=== PATIENT | female | born 1995 | race African-American/Black ===

== ENCOUNTER 2018-11-07 10:52 | Emergency (ER) | payer MEDICAID ==
[~2018-11-07] VITALS: Ht 175.3 cm; Wt 61.4 kg
[2018-11-07 10:56] VITALS: Ht 175.3 cm; Wt 61.4 kg
[2018-11-07 11:39] LABS: BASOPHILS 0.6 % (0-2); EOSINOPHILS 1.6 % (0-7); HCG SERUM POSITIVE (NEGATIVE); HEMATOCRIT 40.5 % (36.0-48.0); HEMOGLOBIN 13.8 g/dL (12-16); IMMATURE GRANULOCYTES 0.1 % (0-5); LYMPHOCYTES 19.5 % (15-50); MCH 27.6 pg (26.0-34.0); MCHC 34.1 g/dL (31.0-37.0); MEAN PLATELET VOLUME 11.5 fL (7.4-10.4); MONOCYTES 7.1 % (2-11); NEUTROPHILS 71.1 % (40-80); PLATELET COUNT 268 10x3/uL (130-400); RDW 13.5 % (11.5-14.5); WBC 10.5 10x3/uL (4.8-10.8)
[2018-11-07 11:45] LABS: ALKALINE PHOSPHATASE 53 U/L (46-116); ALT (SGPT) 14 U/L (10-68); BILIRUBIN - TOTAL 0.98 mg/dL (0.2-1.3); CALC OSMOLALITY 272 mosm/kg (275-300); CALCIUM 9.1 mg/dL (8.5-10.1); CHLORIDE - SERUM 101 mmol/L (98-107); CREATININE - SERUM 0.8 mg/dL (0.6-1.3); GLUCOSE 92 mg/dL (74-106); POTASSIUM - SERUM 3.1 mmol/L (3.5-5.1); PROTEIN - SERUM 8.2 g/dL (6.4-8.2); SODIUM 137 mmol/L (136-145); UREA NITROGEN 10 mg/dL (7-18); eGFR NON AFRICAN AMERICAN > 90 mL/min (90-120)
[2018-11-07 11:48] LABS: APPEARANCE HAZY (CLEAR); BILIRUBIN NEGATIVE (NEGATIVE); COLOR YELLOW (YELLOW); GLUCOSE NEGATIVE (NEGATIVE); KETONE NEGATIVE (NEGATIVE); NITRITE NEGATIVE (NEGATIVE); PROTEIN NEGATIVE (NEGATIVE); SPECIFIC GRAVITY 1.025 (1.005-1.020); UROBILINOGEN NORMAL (NORMAL)
[2018-11-07 11:49] LABS: BACTERIA MODERATE /hpf (NONE SEEN); EPITHELIAL CELLS 0-5 /hpf (0-5); MUCUS >1+ /lpf (NONE SEEN); WHITE CELLS - URINE 0-5 /hpf (0-5)
[2018-11-07] MEDS ORDERED: FLAGYL500 MG PO (15:22)
[2018-11-07] MEDS ORDERED: MACROBID100 MG PO (15:22)
[2018-11-07 16:26] VITALS: BP 130/80
== END 2018-11-07 16:28 | disposition home or self-care (01) ==
LOC: D.ER 10:52
PROVIDERS: Family Medicine
DX: O20.0 Threatened abortion (principal); Z3A.01 Less than 8 weeks gestation of pregnancy

== ENCOUNTER 2018-12-21 11:21 | Emergency (ER) | payer MEDICAID ==
[~2018-12-21] VITALS: Ht 175.3 cm; Wt 57.3 kg
[~2018-12-21 11:21] MED LIST: FLAGYL500 MG PO; MACROBID100 MG PO
[2018-12-21 11:26] VITALS: BP 135/86; Ht 175.3 cm; Wt 57.3 kg
[2018-12-21] MEDS ORDERED: PRENAVITE1 TAB PO (11:32)
== END 2018-12-21 14:45 | disposition home or self-care (01) ==
LOC: D.ER 11:21
DX: G43.909 Migraine, unspecified, not intractable, without status migrainosus (principal)

== ENCOUNTER 2019-05-20 03:40 | Inpatient (IN) | payer MEDICAID ==
[~2019-05-20] VITALS: Ht 175.3 cm; Wt 70.3 kg
[~2019-05-20 03:40] MED LIST changes: +PRENAVITE1 TAB PO
[2019-05-20 04:36] VITALS: BP 116/63; BMI 22.9
[2019-05-20 05:36] LABS: HEMATOCRIT 33.5 % (36.0-48.0); HEMOGLOBIN 11.4 g/dL (12-16); MCH 26.7 pg (26.0-34.0); MCV 78.5 fL (80.0-100.0); MEAN PLATELET VOLUME 12.4 fL (7.4-10.4); RBC 4.27 10x6/uL (4.00-5.40); RDW 13.7 % (11.5-14.5); WBC 13.3 10x3/uL (4.8-10.8)
[2019-05-20 05:40] LABS: APPEARANCE CLOUDY (CLEAR); BILIRUBIN NEGATIVE (NEGATIVE); COLOR YELLOW (YELLOW); GLUCOSE NEGATIVE (NEGATIVE); KETONE NEGATIVE (NEGATIVE); NITRITE NEGATIVE (NEGATIVE); PROTEIN 2+ mg/dL (NEGATIVE); UROBILINOGEN NORMAL (NORMAL)
[2019-05-20 05:42] LABS: BACTERIA MODERATE /hpf (NEGATIVE); EPITHELIAL CELLS 0-5 /hpf (0-5); RED CELLS - URINE 0-5 /hpf (0-5)
[2019-05-20 06:27] LABS: UDS - AMPHET NEGATIVE QUAL (NEGATIVE); UDS - BARB NEGATIVE QUAL (NEGATIVE); UDS - BENZO NEGATIVE QUAL (NEGATIVE); UDS - COCAINE NEGATIVE QUAL (NEGATIVE); UDS - OPIATE NEGATIVE QUAL (NEGATIVE); UDS - PCP NEGATIVE QUAL (NEGATIVE); UDS - THC POSITIVE QUAL (NEGATIVE)
--- NOTE | 2019-05-20 15:30 | NUR ---
pt ambulatory in [facility], with her mother, pt reqeusting a dr. yanez to drink, as "the vending machine did not work". dr. yanez served. pt denies all other needs at this time. pt denies pain. pt ambulatory back to room, srup x2, call light and phone within reach.
--- NOTE | 2019-05-20 19:40 | NUR ---
PM ROUNDS MADE, PT UP IN BR AT THIS TIME, FOB HOLDING AND FAMILY MEMBER ON COUCH, INST FOB TO LET PT KNOW THAT I WILL BE BACK SHORTLY TO DO ASSESSMENT, FOB VERBALIZES UNDERSTANDING
[2019-05-20 20:45] VITALS: BP 131/88
--- NOTE | 2019-05-20 20:45 | NUR ---
ASSESSMENT PER FLOW SHEET, VS OBTAINED, SALINE LOCK IN RIGHT WRIST INTACT WITH NO REDNESS OR EDEMA, FF, ML, U/2, PT REPORTS LITE BLEEDING WITH NO CLOTS, REPORTS FLATUS, NO BM AND VOIDING WITH NO DIFFICULTY, PT RATES CRAMPING 12/05, INFORMED PT THAT I WILL CHECK TO SEE WHEN PAIN MED WAS DUE AND THAT I WILL BRING IT IN, PT VERBALIZES UNDERSTANDING, DENIES NEEDS AT THIS TIME, BED IN LOW POSITION, SIDE RAILS X 2, CALL LIGHT IN REACH
--- NOTE | 2019-05-20 21:43 | NUR ---
PT , ADM MOTRIN PER MD ORDERS, SEE EMAR, WITH FRESH H20, PT DENIES FURTHER NEEDS
--- NOTE | 2019-05-20 22:33 | NUR ---
PT AWAKE, INFANT IN OPEN CRIB CART AT BEDSIDE, RATES CRAMPING 3/10, DENIES NEEDS AT THIS TIME
--- NOTE | 2019-05-21 00:19 | NUR ---
PT RESTING WITH EYES CLOSED, RESP QUIET, NO DISTRESS NOTED, LEFT UNDISTURBED AT THIS TIME, IN OPEN CRIB CART AT BEDSIDE
--- NOTE | 2019-05-21 00:39 | NUR ---
SHIFT REPORT TO STARR HSU RN
--- NOTE | 2019-05-21 01:30 | NUR ---
PT. CALLS THIS NURSE TO ROOM. STATES SHE THINKS INFANT MIGHT BE CHOKING. AWAKE AT THIS TIME AND COLOR PINK. ASKED PT. IF SHE KNEW HOW TO USE BULB SYRINGE. PT. RELATES THAT SHE DOES NOT. EXPLAINED TO PT. REASON FOR BULB SYRINGE AND HOW TO USE. PT. STATES UNDERSTANDING. STOOD AT BEDSIDE FOR 5-6 MINUTES AND OBSERVED INFANT. NO ABNORMAL FINDINGS. INQUIRED WHEN ATE LAST. STATES IT WAS ABOUT 9:20. STATES SHE IS . INFORMED PT. THAT DUE TO HER BABY'S WEIGHT, HE NEEDS TO EAT EVERY 3 HOURS. PT. STATED THAT SHE DID NOT KNOW. ENCOURAGED PT. TO ATTEMPT TO BREASTFEED AND IF SHE HAD ANY FURTHER ISSUES OR CONCERNS TO PUSH HER CALL LIGHT FOR ASSISTANCE. ELADIA, IN NBN INFORMED OF PT. CONCERNS AND CONVERSATION THAT THIS NURSE HAD WITH PT.
--- NOTE | 2019-05-21 02:05 | NUR ---
INTO PT. ROOM AND ON PT'S SHOULDER. INQUIRED IF NURSED WELL. PT. STATES THAT HE DID NOT WANT TO FEED. ASKED PT. IF SHE HAD OFFERED HIM A BOTTLE AND PT. STATES THAT SHE DID NOT. SHE INDICATES THAT THERE ARE BOTTLES IN THE DRAWER OF HER CRIB. BOTTLE OBTAINED AND NIPPLE ATTACHED. OBSERVED PT. RUBBING NIPPLE ON INFANT LIPS. ENCOURAGED PT. TO PLACE NIPPLE IN INFANT MOUTH. DISCUSSED WITH PT. AFTER OBSERVATION THAT SHE NEEDS TO PLACE MORE THAN TIP OF NIPPLE IN 'S MOUTH. PT. COMPLIED TO DIRECTIONS. INFORMED PT. HOW TO NOTE AIR BUBBLES AT NECK OF BOTTLE WHEN INDICATE INFANT IS SUCKING. PT. OBSERVED AND CONFIRMED THAT SHE DID ALSO NOTED. ENCOURAGED PT. TO BURP AT APPROXIMATELY 15CC JOSE ELIAS ON BOTTLE AND TO CALL THIS NURSE WITH ANY FURTHER QUESTIONS OR IF SHE NEEDED FURTHER ASSISTANCE. PT. AGREEABLE AND STATES UNDERSTANDING.
--- NOTE | 2019-05-21 05:43 | NUR ---
PT. LYING ON RT SIDE. RESPIRATIONS UNLABORED. IN OPEN CRIB AT BEDSIDE WITH EYES CLOSED AND RESPIRATIONS UNLABORED.
[2019-05-21 06:52] LABS: BASOPHILS 0.3 % (0-2); EOSINOPHILS 1.3 % (0-7); HEMATOCRIT 29.3 % (36.0-48.0); HEMOGLOBIN 9.9 g/dL (12-16); IMMATURE GRANULOCYTES 0.6 % (0-5); LYMPHOCYTES 19.7 % (15-50); MCH 26.4 pg (26.0-34.0); MCHC 33.8 g/dL (31.0-37.0); MCV 78.1 fL (80.0-100.0); MEAN PLATELET VOLUME 11.2 fL (7.4-10.4); MONOCYTES 5.9 % (2-11); NEUTROPHILS 72.2 % (40-80); PLATELET COUNT 156 10x3/uL (130-400); RBC 3.75 10x6/uL (4.00-5.40); RDW 13.7 % (11.5-14.5); WBC 10.7 10x3/uL (4.8-10.8)
[2019-05-21 08:00] VITALS: BP 129/81
--- NOTE | 2019-05-21 08:00 | NUR ---
ASSESSMENT DONE. PT AWAKE AND ALERT- VERBAL RESPONSES APPRO TO QUESTIONS. VERNON AT WILL. DENIES PAIN-DENIES NEEDS. UP TO BATHROOM NEEDED.
[2019-05-21 08:11] LABS: RAPID PLASMA REAGIN Non Reactive (Non Reactive)
--- NOTE | 2019-05-21 08:59 | NUR ---
co cramping at this time- rates pain a 4 on scale of 0-10. motrin to be given.
--- NOTE | 2019-05-21 09:45 | NUR ---
UP TO SHOWER AND LINEN CHANGED. TOLERATED WELL.
--- NOTE | 2019-05-21 09:54 | NUR ---
RHOGAM INJECTION GIVEN RT ARM PER RN STUDENT WITH Siva ORONA RN SUPERVISING.
[2019-05-21 10:52] VITALS: Ht 175.3 cm; Wt 70.3 kg
--- NOTE | 2019-05-21 12:00 | NUR ---
UP AND ABOUT IN ROOM DESIRED. DENIES NEEDS.
[2019-05-21 12:15] VITALS: BP 117/82
--- NOTE | 2019-05-21 12:30 | NUR ---
DR ALEMAN HERE TO SEE PT.- NO NEW ORDERS.
[2019-05-21 16:07] VITALS: BP 128/84
--- NOTE | 2019-05-21 16:07 | NUR ---
sitting up in bed watching tv. denies needs. vs done.
--- NOTE | 2019-05-21 17:45 | NUR ---
RECEIVED SHIFT REPORT FROM MILENA DONOVAN RN
[2019-05-21 18:15] VITALS: BP 117/75
--- NOTE | 2019-05-21 18:15 | NUR ---
PT JUST FINISHED FEEDING , ASSESSMENT PER FLOW SHEET, VS OBTAINED, SALINE LOCK IN RIGHT WRIST INTACT WITH NO REDNESS OR EDEMA, FF, ML, U/2, PT REPORTS LITE BLEEDING WITH NO CLOTS, +FLATUS, NO BM, AND VOIDING WITH NO DIFFICULTY, RATES CRAMPING 2/10, DENIES NEED FOR ANYTHING AT THIS TIME, PT INST TO USE CALL LIGHT WHEN NEEDING MOTRIN, PT VERBALIZES UNDERSTANDING, DENIES NEEDS AT THIS TIME
--- NOTE | 2019-05-21 19:20 | NUR ---
PT SITTING UP IN BED, VISITING WITH FAMILY AND FRIENDS, INFANT IN OPEN CRIB CART AT BEDSIDE
--- NOTE | 2019-05-21 20:23 | NUR ---
PT FEEDING INFANT, DENIES NEEDS AT THIS TIME, PT INFORMED WHEN MOTRIN WAS LAST ADM AND INST TO USE CALL LIGHT WHEN NEEDING IT, PT VERBALIZES UNDERSTANDING
--- NOTE | 2019-05-21 20:50 | NUR ---
PT REBAR WORKER LIGHT, PT REQUESTED AND ADM MOTRIN PER MD ORDERS, SEE EMAR, PT DENIES FURTHER NEEDS, PT HOLDING INFANT AT THIS TIME
--- NOTE | 2019-05-21 21:33 | NUR ---
PT HOLDING INFANT, DENIES NEEDS OR PAIN, FAMILY AT BEDSIDE
--- NOTE | 2019-05-21 22:38 | NUR ---
PT CONFIGURATION TECHNICIAN LIGHT, PT HIT WRIST ON BEDSIDE TABLE, DISLODGED SALINE LOCK, SALINE LOCK REMOVED, TIP INTACT, PRESSURE HELD, BANDAID APPLIED, PT DENIES FURTHER NEEDS OR PAIN, IN OPEN CRIB CART AT BEDSIDE
--- NOTE | 2019-05-22 00:15 | NUR ---
PT WATCHING TV, INFANT IN OPEN CRIB CART AT BEDSIDE, PT DENIES NEEDS OR PAIN AT THIS TIME
--- NOTE | 2019-05-22 02:02 | NUR ---
PT RESTING WITH EYES CLOSED, RESP QUIET, NO DISTRESS NOTED, LEFT UNDISTURBED AT THIS TIME, IN OPEN CRIB CART ASLEEP AT BEDSIDE
--- NOTE | 2019-05-22 04:00 | NUR ---
PT RESTING WITH EYES CLOSED, RESP QUIET, NO DISTRESS NOTED, LEFT UNDISTURBED AT THIS TIME, IN OPEN CRIB CART ASLEEP AT BEDSIDE
--- NOTE | 2019-05-22 06:15 | NUR ---
PT RESTING WITH EYES CLOSED, RESP QUIET, NO DISTRESS NOTED, LEFT UNDISTURBED AT THIS TIME, IN NSY
--- NOTE | 2019-05-22 07:35 | NUR ---
DIETARY SERVES REGULAR DIET TRAY.
[2019-05-22 07:45] VITALS: BP 120/75
--- NOTE | 2019-05-22 07:45 | NUR ---
am assessment complete. pt in bed with infant in crib sleeping. pt denies bleeding or passing clots. pt denies pain and all other needs at this time. srup x2, call light and phone within reach.
--- NOTE | 2019-05-22 07:45 | NUR ---
see flowsheet for am assessment. this rn agrees with am assessment.
--- NOTE | 2019-05-22 09:12 | NUR ---
rounding by this RN. pt in bed watching tv. pt refuses the dtap immunization at this time. pt denies pain and all other needs at this time. srupx2, call light and phone within reach.
--- NOTE | 2019-05-22 10:28 | NUR ---
rounding completed by this RN. Pt sleeping in bed with sleeping in crib at bedside. no distress noted. srup x2, call light and phone within reach.
--- NOTE | 2019-05-22 11:45 | NUR ---
dietary serves regular lunch tray, pt denies all needs at this time. srup x2, call light and phone within reach.
--- NOTE | 2019-05-22 12:41 | MORECARE ---
CASE MANAGEMENT DISCHARGE SUMMARY PATIENT: LILLI MIRZA UNIT: [id number] ADM DATE: 05/20/19 AGE: 23 : [birth year] SEX: F ROOM/BED: D.1257 AUTHOR: ROBERTO HARMAN PHYSICIAN: REFERRING PHYSICIAN: JJ ANGELA MD DATE OF SERVICE: 05/22/19 Discharge Plan Patient Name: LILLI MIRZA Facility: [facility]:[place] : 1995 Planned Disposition: Anticipated Discharge Date: Discharge Date: Expected LOS: Initial Reviewer: [email or web address] Initial Review Date: 05/20/2019 Generated: 05/22/19 1:41 pm Comments DCP- Discharge Planning Updated by [email or web address]: Nidia Rodriguez on 05/22/19 11:[address] LATE ENTRY 05/21/19 @ 1730 DC PLAN: MOB states she plans taking infant home. Address: [address] [place] [address]. DC NEEDS: Denies any needs TRANSPORTATION: private vehicle great-grandmother will transport to appointments WIC: No appointment yet MEDICAID: MOB states she has filled out paperwork CAR SEAT: Yes FEEDING PLAN: Plans breast and formula feed. MOB states will use bottled water with formula. BABY NAME: ELOISA MIRZA FOB: NO NAME GIVEN - NOT IN THE PICTURE MOB: LILLI MIRZA SECURITY DIRECTOR: ZOË CARE: MOB states she had care throughout SUPPLIES: MOB states has car seat, clothes, diapers, crib and bottles (all needs) WATER SOURCE: city HEAT SOURCE: Gas MOB states they have smoke alarms and CO2 detectors in the home AIR CONDITIONING: yes CM met with MOB after obtaining verbal consent regarding dc planning/needs. MOB to return to her grandmother's home with infant. States home environment is safe. She states in addition to herself, three other people live in the home. MOB states she will have transportation to follow up appointments. MOB states this is her third child. MOB states that she does have custody of her other children. Ages are 6 & 2 year old both are girls. Denies any pets, smoking or drug / etoh use in the home. MOB states that she plans on finding employment after recovering from delivery. MOB states that she will have family to help care for children while she is working. CM spoke to BRYCE regarding positive drug screen of THC. BRYCE states that she smokes marijuana often due to anxiety and insomnia. She stated the last time she used was about a month ago. CM explained that [employer] has been notified and will be out to visit with her. BRYCE stated they have already been in and will be doing a home visit tomorrow. Denies any other discharge needs at this time. CM will continue to follow and assist as needed with dc planning/needs. Patient Name: LILLI MIRZA Page [id number] at 1241 All edits/amendments must be made on the electronic document DICTATION DATE: 05/22/19 124 REVIEW APPRAISER: ANTOLIN 05/22/19 124 RPT#: [id number] DC DATE: STATUS: ADM IN [facility] [address] [place] [address] END OF REPORT
--- NOTE | 2019-05-22 14:45 | NUR ---
dr. morillo calls to unit, and reports that she is unable to complete discharge order due to being unable to sign admission orders. telephone order received to discharge pt home to follow up at w in 6 weeks, to take otc tylenol 650 mg po q 6 hrs prn pain.
[2019-05-22] MEDS ORDERED: ACETAMINOPHEN325 MG PO (14:50)
--- NOTE | 2019-05-22 15:31 | NUR ---
pt discharged to room in status. pt sitting up in bed with infant in crib at bedside. discharge instructions explained to pt with copies provided. pt informed did not write pain medication prescriptions but wants pt to take OTC tylenol 650mg PO q6hrs prn pain. contact isolation initiated and explained to pt for MRSA in urine.
--- NOTE | 2019-05-22 15:40 | NUR ---
phone call made to dr. morillo to inform her of the results of the urine culture as reported by microbiolgy to john in infection control. pt and infant will need to be placed in contact isolation precaution. pt informed.
--- NOTE | 2019-05-22 15:45 | NUR ---
dr. morillo states she will call in ampicillin x 7 days to pt's pharmacy as listed, [facility] pt informed she will need to have someone supervisor picking crew this prescription and bring it back to her here at the hospital. pt agrees.
--- NOTE | 2019-05-22 16:00 | NUR ---
jorgito in dietary notified of rooming in status, and pt's meals will still need to be delivered to 1257.
--- NOTE | 2019-05-24 15:19 | MORECARE ---
CASE MANAGEMENT DISCHARGE SUMMARY PATIENT: LILLI MIRZA UNIT: [id number] ADM DATE: 05/20/19 AGE: 23 : [birth year] SEX: F ROOM/BED: D.1257 AUTHOR: ROBERTO HARMAN PHYSICIAN: REFERRING PHYSICIAN: JJ ANGELA MD DATE OF SERVICE: 05/24/19 Discharge Plan Patient Name: LILLI MIRZA Facility: [facility]:[place] : 1995 Planned Disposition: Anticipated Discharge Date: Discharge Date: 05/22/2019 Expected LOS: Initial Reviewer: [email or web address] Initial Review Date: 05/20/2019 Generated: 05/24/19 4:19 pm Comments DCP- Discharge Planning Updated by [email or web address]: Nidia Rodriguez on 05/22/19 11:[address] LATE ENTRY 05/21/19 @ 1730 DC PLAN: MOB states she plans taking infant home. Address: [address] [place] [address]. DC NEEDS: Denies any needs TRANSPORTATION: private vehicle great-grandmother will transport to appointments WIC: No appointment yet MEDICAID: MOB states she has filled out paperwork CAR SEAT: Yes FEEDING PLAN: Plans breast and formula feed. MOB states will use bottled water with formula. BABY NAME: ELOISA MIRZA FOB: NO NAME GIVEN - NOT IN THE PICTURE MOB: LILLI MIRZA COUNTER ROLLER: ZOË CARE: MOB states she had care throughout SUPPLIES: BRYCE states has car seat, clothes, diapers, crib and bottles (all needs) WATER SOURCE: city HEAT SOURCE: Gas MOB states they have smoke alarms and CO2 detectors in the home AIR CONDITIONING: yes CM met with MOB after obtaining verbal consent regarding dc planning/needs. MOB to return to her grandmother's home with . States home environment is safe. She states in addition to herself, three other people live in the home. MOB states she will have transportation to follow up appointments. MOB states this is her third child. MOB states that she does have custody of her other children. Ages are 6 & 2 year old both are girls. Denies any pets, smoking or drug / etoh use in the home. MOB states that she plans on finding employment after recovering from delivery. BRYCE states that she will have family to help care for children while she is working. CM spoke to BRYCE regarding positive drug screen of THC. BRYCE states that she smokes marijuana often due to anxiety and insomnia. She stated the last time she used was about a month ago. CM explained that [employer] has been notified and will be out to visit with her. BRYCE stated they have already been in and will be doing a home visit tomorrow. Denies any other discharge needs at this time. CM will continue to follow and assist as needed with dc planning/needs. Last DP export: 05/22/19 11:41 a Patient Name: LILLI MIRZA Page [id number] at 1519 All edits/amendments must be made on the electronic document DICTATION DATE: 05/24/191518 FOLEY ARTIST: ANTOLIN 05/24/199 RPT#: [id number] DC DATE:05/22/19 STATUS: DIS IN [facility] [address] [place] [address] END OF REPORT
== END 2019-05-22 14:50 | disposition home or self-care (01) | DRG 806 ==
LOC: D.LDO 03:40 → D.LD 04:18
PROVIDERS: Student in an Organized Health Care Education/Training Program; ADMIT Obstetrics & Gynecology; ATTEND Obstetrics & Gynecology
PROC: 10E0XZZ Delivery of Products of Conception, External Approach (ICD-10-PCS; principal; 2019-05-20)
DX: O60.14X0 Preterm labor third trimester with preterm delivery third trimester, not applicable or unspecified (principal); O36.0930 Maternal care for other rhesus isoimmunization, third trimester, not applicable or unspecified; Z37.0 Single live birth; Z3A.34 34 weeks gestation of pregnancy; O69.81X0 Labor and delivery complicated by cord around neck, without compression, not applicable or unspecified